=== PATIENT | male | born 1945 ===

== ENCOUNTER 2022-01-07 09:29 | Emergency (ER) | payer OTHER ==
[2022-01-07 10:15] LABS: Hematocrit 49.1 % (39.6-49.0); Lymphocytes % 25.4 % (15.3-44.8); MPV 7.9 fL (7.6-11.3); RBC Red Blood Cell Count 5.37 M/uL (4.33-5.43)
[2022-01-07 10:28] LABS: Potassium 3.6 mmol/L (3.5-5.1)
[2022-01-07 13:11] LABS: Urine Blood Trace-lysed (Negative); Urine Glucose Negative (Negative); Urine Protein Negative (Negative); Urine Specific Gravity 1.015 (1.005-1.030)
--- NOTE | 2022-01-07 13:17 | ER ---
Nurse's Notes [facility] Name: Mak Celaya Age: 77 yrs Sex: Male : 1945 Arrival Date: 01/07/2022 Time: 09:33 Bed 7 Private MD: Diagnosis: Retention of urine, unspecified Presentation: 01/07 09:42 Chief complaint: Patient states: Pt states that he self-catheterizes bladder and has ph been doing so for approx 4-5 years, reports reduced urine output and difficulty/pain inserting catheter, denies fever or abdominal pain. Coronavirus screen: Vaccine status: Patient reports being unvaccinated. Ebola Screen: No symptoms or risks identified at this time. Initial Sepsis Screen: Does the patient meet any 2 criteria? No. Patient's initial sepsis screen is negative. Does the patient have a suspected source of infection? No. Patient's initial sepsis screen is negative. Risk Assessment: Do you want to hurt yourself or someone else? Patient reports no desire to harm self or others. Onset of symptoms was January 07, 2022. 09:42 Method Of Arrival: Ambulatory ph 09:42 Acuity: ZAMZAM 3 ph Triage Assessment: 09:45 General: Appears in no apparent distress. comfortable, Behavior is calm, cooperative, ph appropriate for age, Denies fever. Pain: Denies pain. Neuro: Level of Consciousness is awake, alert, obeys commands, Oriented to person, place, time, situation. : Reports difficulty self catheterizing. Musculoskeletal: Circulation, motion, and sensation intact. Range of motion: intact in all extremities. Historical: - Allergies: 09:45 No Known Allergies; ph - PMHx: 09:45 Hypertensive disorder; ph - Immunization history:: Adult Immunizations unknown. - Social history:: Smoking status: Patient denies any tobacco usage or history of. - Family history:: not pertinent. - Hospitalizations: : No recent hospitalization is reported. Screenin:58 Abuse screen: Denies threats or abuse. Denies injuries from another. Nutritional ww screening: No deficits noted. Tuberculosis screening: No symptoms or risk factors identified. Fall Risk None identified. Assessment: 09:42 General: Appears in no apparent distress. uncomfortable, Behavior is calm, cooperative. vg1 Pain: Denies pain. Neuro: Level of Consciousness is awake, alert, obeys commands, Oriented to person, place, time, situation. Cardiovascular: Patient's skin is warm and dry. Respiratory: Airway is patent Respiratory effort is even, unlabored. GI: No signs and/or symptoms were reported involving the gastrointestinal system. : Reports 'im having trouble with the opening of my penis; its hard to insert the catheter and when I remove the catheter I have some blood that comes out with it'. EENT: No signs and/or symptoms were reported regarding the EENT system. Derm: Skin is intact, is healthy with good turgor. Musculoskeletal: Circulation, motion, and sensation intact. 10:53 Reassessment: Patient appears in no apparent distress at this time. No changes from vg1 previously documented assessment. Patient and/or family updated on plan of care and expected duration. Pain level reassessed. Patient is alert, oriented x 3, equal unlabored respirations, skin warm/dry/pink. 11:38 Reassessment: Patient appears in no apparent distress at this time. No changes from vg1 previously documented assessment. Patient and/or family updated on plan of care and expected duration. Pain level reassessed. Patient is alert, oriented x 3, equal unlabored respirations, skin warm/dry/pink. reassessed newton bag; no urine output; bladder scan of 302 mL; provider notified. 12:40 Reassessment: Patient appears in no apparent distress at this time. No changes from vg1 previously documented assessment. Patient and/or family updated on plan of care and expected duration. Pain level reassessed. Patient is alert, oriented x 3, equal unlabored respirations, skin warm/dry/pink. 13:35 Reassessment: Patient appears in no apparent distress at this time. Patient and/or vg1 family updated on plan of care and expected duration. Pain level reassessed. Patient is alert, oriented x 3, equal unlabored respirations, skin warm/dry/pink. Pt had another output of urine approximately 500 mL Patient denies pain at this time. Vital Signs: 09:42 BP 180 / 91; Pulse 93; Resp 18; Temp 97.8; Pulse Ox 99% on R/A; Weight 108.86 kg; ph Height 5 ft. 9 in. (175.26 cm); 10:00 BP 142 / 82; Pulse 81; Resp 17; Pulse Ox 98% on R/A; vg1 11:00 BP 143 / 82; Pulse 75; Resp 16; Pulse Ox 98% on R/A; vg1 12:00 BP 140 / 96; Pulse 74; Resp 16; Pulse Ox 98% on R/A; vg1 13:13 BP 176 / 69; Pulse 88; Resp 17; Pulse Ox 100% on R/A; mh5 13:43 BP 145 / 71; Pulse 83; Resp 16; Pulse Ox 99% ; vg1 09:42 Body Mass Index 35.44 (108.86 kg, 175.26 cm) ph ED Course: 09:25 Bladder scan completed. 41 mL. vg1 09:33 Patient arrived in ED. kz 09:38 Rahat Berg MD is Attending Physician. rn 09:41 Katie Mosher RN is Primary Nurse. vg1 09:45 Triage completed. ph 09:45 Arm band placed on Patient placed in an exam room, on a stretcher. ph 09:57 Patient has correct armband on for positive identification. Placed in gown. Bed in low ww position. Call light in reach. Side rails up X2. Pulse ox on. NIBP on. Warm blanket given. 09:57 Inserted saline lock: 20 gauge in right antecubital area, using aseptic technique. ww Blood collected. 10:35 Newton cath inserted, using sterile technique, by ED staff, balloon inflated, to gravity vg1 drainage, urine specimen collected. other 6 F; No urine return; provider notified. Patient tolerated well. 11:35 Bladder scan completed. 302 mL. vg1 12:55 Newton cath balloon deflated. vg1 13:00 12 F disposable urinary leg bag placed and a return of apporximately 275 mL of urine. vg1 13:12 Urine Microscopic Only Sent. 5 13:12 Urine Culture Sent. 5 13:13 Urine collected: Newton catheter specimen, cloudy. 5 13:30 IV discontinued, intact, bleeding controlled, No redness/swelling at site. Pressure vg1 dressing applied. 13:30 No provider procedures requiring assistance completed. vg1 Administered Medications: No medications were administered Outcome: 13:16 Discharge ordered by . rn 13:30 Discharged to home ambulatory, with family. vg1 13:30 Condition: good 13:30 Discharge instructions given to patient, family, Instructed on discharge instructions, follow up and referral plans. medication usage, Demonstrated understanding of instructions, follow-up care, medications, Prescriptions given X 1. 13:44 Patient left the ED. vg1 Addendum: 01/10/2022 11:44 Addendum: Culture Results: Positive urine culture. No further action required. Bacteria a a5 sensitive to prescribed antibiotic. Signatures: Rahat Berg MD MD rn Calderon, Veronica, RN RN [email or web address] Adelina Gonzalez RN RN Emilia Fisher [facility] Katie Mosher RN RN vg1 Rea Green RN RN ww Zapata, Kelly kz Corrections: (The following items were deleted from the chart) 01/07 10:54 10:35 Newton cath inserted, using sterile technique, by ED staff, balloon inflated, to vg1 gravity drainage, other 6 F vg1 13:43 13:43 Reassessment: Patient appears in no apparent distress at this time. No changes ww from previously documented assessment. Patient and/or family updated on plan of care and expected duration. Pain level reassessed. Patient is alert, oriented x 3, equal unlabored respirations, skin warm/dry/pink. ww
--- NOTE | 2022-01-07 13:17 | EDPHYS ---
Physician Documentation [facility] Name: Mak Celaya Age: 77 yrs Sex: Male : 1945 Arrival Date: 01/07/2022 Time: 09:33 Bed 7 Private MD: ED Physician Rahat Berg HPI: 01/07 09:52 This 77 yrs old Male presents to ER via Ambulatory with complaints of Urinary Problem. rn 09:52 The patient presents with urinary symptoms, not as much urine output. Onset: The rn symptoms/episode began/occurred 1 week(s) ago. Modifying factors: The symptoms are alleviated by nothing, the symptoms are aggravated by nothing. Associated signs and symptoms: Pertinent negatives: abdominal pain, dysuria, fever, nausea, vomiting. Severity of symptoms: At their worst the symptoms were mild, in the emergency department the symptoms are unchanged. The patient has experienced similar episodes in the past. The patient has not recently seen a physician. Pt reports self-caths daily for urine, lately is harder to cath and less output. No fever. NO abd pain, feels like empties when does cath himself. No hematuria. 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 No known prostate problems.. Historical: - Allergies: 09:45 No Known Allergies; ph - PMHx: 09:45 Hypertensive disorder; ph - Immunization history:: Adult Immunizations unknown. - Social history:: Smoking status: Patient denies any tobacco usage or history of. - Family history:: not pertinent. - Hospitalizations: : No recent hospitalization is reported. ROS: 09:58 Constitutional: Negative for fever, chills, and weight loss, Eyes: Negative for injury, rn pain, redness, and discharge, Cardiovascular: Negative for chest pain, palpitations, and edema, Respiratory: Negative for shortness of breath, cough, wheezing, and pleuritic chest pain, Abdomen/GI: Negative for abdominal pain, nausea, vomiting, diarrhea, and constipation, Back: Negative for injury and pain, : + difficulty with urine cath and decreased output MS/Extremity: Negative for injury and deformity, Skin: Negative for injury, rash, and discoloration, Neuro: Negative for headache, weakness, numbness, tingling, and seizure. Exam: 09:58 Constitutional: This is a well developed, well nourished patient who is awake, alert, rn and in no acute distress. Cardiovascular: Regular rate and rhythm. No pulse deficits. Abdomen/GI: soft, non-tender, non-distended Skin: Warm, dry MS/ Extremity: Pulses equal, no cyanosis. Neuro: Awake and alert, GCS 15 Vital Signs: 09:42 BP 180 / 91; Pulse 93; Resp 18; Temp 97.8; Pulse Ox 99% on R/A; Weight 108.86 kg; ph Height 5 ft. 9 in. (175.26 cm); 10:00 BP 142 / 82; Pulse 81; Resp 17; Pulse Ox 98% on R/A; vg1 11:00 BP 143 / 82; Pulse 75; Resp 16; Pulse Ox 98% on R/A; vg1 12:00 BP 140 / 96; Pulse 74; Resp 16; Pulse Ox 98% on R/A; vg1 13:13 BP 176 / 69; Pulse 88; Resp 17; Pulse Ox 100% on R/A; mh5 13:43 BP 145 / 71; Pulse 83; Resp 16; Pulse Ox 99% ; vg1 09:42 Body Mass Index 35.44 (108.86 kg, 175.26 cm) ph MDM: 09:38 Patient medically screened. rn 13:15 Differential diagnosis: UTI, urinary retention, prostatitis, urethritis. Data reviewed: rn vital signs, nurses notes, lab test result(s), and as a result, I will discharge patient. Counseling: I had a detailed discussion with the patient and/or guardian regarding: the historical points, exam findings, and any diagnostic results supporting the discharge/admit diagnosis, lab results, the need for outpatient follow up, to return to the emergency department if symptoms worsen or persist or if there are any questions or concerns that arise at home. Response to treatment: the patient's symptoms have markedly improved after treatment, the patient's condition has returned to base line, the patient is now symptom free, and as a result, I will discharge patient. Special discussion: I discussed with the patient/guardian in detail that at this point there is no indication for admission to the hospital. It is understood, however, that if the symptoms persist or worsen the patient needs to return immediately for re-evaluation. ED course: Pt observed here, built up about 300 ml of urine and good output from indwelling catheter, will leave in place, patient has had an indwelling catheter before, will f/u with MD urology. . 01/07 09:46 Order name: CBC with Diff; Complete Time: 10:44 rn 01/07 09:46 Order name: Basic Metabolic Panel; Complete Time: 10:44 rn 01/07 09:46 Order name: IV Start; Complete Time: 09:57 rn 01/07 09:46 Order name: Urine Culture rn 01/07 09:46 Order name: Urine Microscopic Only rn 01/07 13:12 Order name: Urine Dipstick-Ancillary EDGA 01/07 09:46 Order name: Urine Dipstick-Ancillary (obtain specimen); Complete Time: 13:12 rn 01/07 09:46 Order name: Bladder Scanner; Complete Time: 10:45 rn 01/07 09:46 Order name: [place]; Complete Time: 10:45 rn Administered Medications: No medications were administered Disposition Summary: 01/07/22 13:16 Discharge Ordered Location: Home rn Problem: new rn Symptoms: have improved rn Condition: Stable rn Diagnosis - Retention of urine, unspecified rn Followup: rn - With: Private Physician - When: As needed - Reason: Recheck today's complaints, Re-evaluation by your physician Discharge Instructions: - Discharge Summary Sheet rn - Indwelling Urinary Catheter Care, Adult rn - Acute Urinary Retention, Male rn - Clean Intermittent Catheterization, Male rn Forms: - Medication Reconciliation Form rn - Thank You Letter rn - Antibiotic [place] - Prescription Opioid Use rn Prescriptions: - Bactrim DS 800-160 mg Oral Tablet - take 1 tablet by ORAL route every 12 hours for 10 days; 20 tablet; Refills: 0, rn Product Selection Permitted Signatures: Dispatcher [employer] Rahat Liao MD MD rn Hall, Patricia, RN RN ph
[2022-01-07 13:29] LABS: Urine Bacteria LOADED /HPF (NONE SEEN); Urine RBC <5 /HPF (NONE SEEN)
[2022-01-07 13:52] VITALS: TEMP 97.8
[2022-01-07 13:59] VITALS: BP 145/71; O2SAT 99
== END 2022-01-07 13:44 | disposition home or self-care (01) ==
LOC: ER 09:29
DX: R33.9 Retention of urine, unspecified (principal); I10 Essential (primary) hypertension; Z46.6 Encounter for fitting and adjustment of urinary device
CPT/HCPCS: 36415; 51702; 80048; 81003; 81015; 85025; 87077; 87086; 87088; 87186; 99284